=== PATIENT | male | born 1970 | race Caucasian/White ===

== ENCOUNTER 2017-12-30 00:27 | Observation (INO) | payer MEDICAID ==
[~2017-12-30] VITALS: Ht 182.9 cm; Wt 118.0 kg
[~2017-12-30 00:27] MED LIST: ATOR40TA16 PO; GABA800T PO; LEVEMIR SQ; METF1000 PO
[2017-12-30] MEDS ORDERED: ACETAMINOPHEN 325 MG TAB PO PRN (02:00)
[2017-12-30] MEDS ORDERED: SENNOSIDES 8.6 MG TAB PO PRN (02:00)
[2017-12-30] MEDS ORDERED: LACTULOSE SYRUP 20 GM/30 ML CUP PO PRN (02:00)
[2017-12-30] MEDS ORDERED: BISACODYL 10 MG SUPP RECTAL PRN (02:00)
[2017-12-30] MEDS ORDERED: SODIUM CHLORIDE 0.9% FLUSH 10 ML FLUSH IV FLUSH PRN ×2 (02:00→16:30)
[2017-12-30] MEDS ORDERED: MAGNESIUM HYDROXIDE SUSP 30 ML CUP PO PRN (02:00)
[2017-12-30] MEDS ORDERED: NALOXONE HCL 0.4 MG/ML AMP IV PUSH PRN (02:00)
[2017-12-30 06:54] VITALS: BP 127/73; PULSE 65; RESP 20; O2SAT 98
[2017-12-30 07:29] VITALS: BP 119/70; PULSE 62; RESP 20; O2SAT 98
[2017-12-30] MEDS ORDERED: SODIUM CHLORIDE 0.9% FLUSH 10 ML FLUSH IV FLUSH SCH (09:00)
--- NOTE | 2017-12-30 13:39 | PD.PN.STU ---
Subjective Remarks History of Present Illness: HPI Patient presented to the [facility] ED last night (12/29) for chest pain. The pain began 1 week ago and was originally mild, intermittent and episodic. Over the past 2 days, it has become more severe and more frequent, and last night became constant for 2 hours which prompted the trip to the ED. He described the pain as pressure or sensation of heaviness. It is substernal and does not radiate. Rated 10/10 at time of ED presentation. He has never had any similar symptoms before, and does not believe it is related to exertion as he does not exercise. He reported associated shortness of breath but denied diaphoresis, nausea, vomiting. He reports increased fatigue over the past week. Has history of VINI and uses CPAP nightly. Has never had GERD. Pt says the [place] ED performed an initial EKG which was normal, then a repeat EKG was abnormal. He was transferred to [facility] this morning because stress test was unavailable in [place]. He was given aspirin, morphine and Nitropaste in [place], and denies chest pain since last night. Cardiac risk factors include a history of cigarette smoking. He has a 20 pack- year history but says he mostly quit 4 years ago. Now he occasionally smokes, as he will go weeks without smoking but then have an urge and smoke one pack of cigarettes over the weekend. He has not seen a physician in 10-15 years aside from meniscal/ACL tear that required repair in 2017. He was told he had high cholesterol ~10 years ago and given Crestor, but it made him feel terrible so he has not taken it. Denies HTN. He does not follow a specific diet and ate [employer] chicken before coming to the ED. 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 His father from [place] with "100% occlusion" at 56 years old. Denies EtOH. Denies cocaine or substance use. Today he denies chest pain/pressure and is feeling better. Reports fatigue. Denies dyspnea, palpitations, diaphoresis, headaches, fever, abdominal pain, nausea, vomiting, change in bowel habits, musculoskeletal pain. PFSH: PMHx: Sleep apnea, uses CPAP nightly HLD Meds: Ibuprofen prn Surgical Hx: R knee repair of meniscus and ACL 2017 Social Hx: Alcohol Use: Rarely Tobacco Use: 20 pack-year history, current occasional cigarette smoker Substance Use: No FHx: Father - [place] at 56yo, Objective Vitals Vital Signs Date Time Temp Pulse Resp B/P (MAP) Pulse Ox O2 Delivery O2 Flow Rate FiO2 12/30/17 11:29 (86) 12/30/17 07:29 62 20 119/70 (86) 98 Room Air 12/30/17 06:57 63 20 98 Room Air 12/30/17 06:54 65 20 127/73 (91) 98 Objective Remarks Laboratory Tests Test 12/30/17 05:00 12/30/17 09:47 Troponin I LESS THAN 0.02 NG/ML LESS THAN 0.02 NG/ML EXAM: GENERAL: Well-nourished, well-developed, obese male, alert and in NAD. SKIN: Warm/dry. HEAD: Normocephalic. Atraumatic. EYES: Pupils equal and round. No scleral icterus. No injection or drainage. CARDIOVASCULAR: RRR with normal S1/S2 and no murmurs, rubs, or gallops. No JVD. No carotid bruits. Trace peripheral edema of the ankles with strong DP and PT pulses bilaterally. RESPIRATORY: No accessory muscle use. Clear to auscultation with equal breath sounds equal bilaterally. No chest wall tenderness to palpation. GASTROINTESTINAL: Abdomen is obese, soft, nontender, nondistended. Bowel sounds present in all quadrants. NEUROLOGICAL: Awake and alert. No obvious cranial nerve deficits. Motor grossly within normal limits. Normal speech. PSYCHIATRIC: Appropriate mood and affect; insight and judgment normal. A/P Assessment and Plan 47-year-old male presented to [place] ED with chest pain x1 week, acutely worsened last night. Patient was given morphine, ASA, nitropaste and pain has since resolved. He has multiple risk factors for a cardiac source of chest pain , including history of tobacco use, HLD, father with [place] at 56, obesity, and sedentary lifestyle. Patient does not have a PCP and has not seen a physician in many years. Initial EKG was negative and showed NSR with no ischemic change, but second EKG showed T-wave inversion in V4, V5 and V6. This change prompted admission to [facility]. Heparin was started. Troponin x3 negative at <0.02 CXR 12/29 was negative for acute cardiopulmonary disease. He has been admitted to hospitalist service and cardiology consulted. Problem List: 1. Chest Pain, possible cardiac origin Patient is currently stable, comfortable, and pain is controlled Serial troponin negative x3 Telemetry monitoring Vitals q4hr IV NS for hydration Will continue EKG q6 hours to look for any further signs of ischemia CMP, CBC, coagulation panel performed in [place] ED (12/29) all wnl with the exception of Ca++ 8.4L, random BG 107H, eGFR 60L, PT 9.3 Will order lipid panel Consult cardiology for further evaluation, possible stress test vs. cath Pt was eating lunch when I saw him in the ED today, will order heart healthy diet 2. Tobacco use Counseled on smoking cessation 3. Obstructive Sleep Apnea Uses CPAP at home nightly, will continue in hospital Case discussed at length with Monster Nj MS IV . Note above reviewed and agree with above note. Monster Nj M3 December 30, 2017 13:39 Pilar Gupta MD Jan 07, 2018 18:17
[2017-12-30 15:00] VITALS: PULSE 72
[2017-12-30] MEDS ORDERED: MIDAZOLAM HCL 2 MG/2 ML VIAL ONE ×2 (15:17→15:55)
[2017-12-30] MEDS ORDERED: HEPARIN-NS/PF INJ 1,000 ML ONE (15:17)
[2017-12-30] MEDS ORDERED: HEPARIN SODIUM - IV 10,000 UNITS/10 ML VIAL ONE (15:44)
--- NOTE | 2017-12-30 15:49 | HHI.HP ---
HPI Service [facility] Hospitalists Primary Care Physician No Primary Care Physician Admission Diagnosis Diagnoses: Chief Complaint: chest pain Travel History International Travel<30 Days: No Contact w/Intl Traveler <30 Da: No Traveled to Known Affected Are: No History of Present Illness Patient presented to the [facility] ED last night (12/29) for chest pain. The pain began 1 week ago and was originally mild, intermittent and episodic. Over the past 2 days, it has become more severe and more frequent, and last night became constant for 2 hours which prompted the trip to the ED. He described the pain as pressure or sensation of heaviness. It is substernal and does not radiate. Rated 10/10 at time of ED presentation. He has never had any similar symptoms before, and does not believe it is related to exertion as he does not exercise. He reported associated shortness of breath but denied diaphoresis, nausea, vomiting. He reports increased fatigue over the past week. Has history of VINI and uses CPAP nightly. Has never had GERD. Pt says the [place] ED performed an initial EKG which was normal, then a repeat EKG was abnormal. He was transferred to [facility] this morning because stress test was unavailable in [place]. Cardiology is also consulted for evaluation as changes in EGG. Trops and EKG trend. He was given aspirin, morphine and Nitropaste in [place], and denies chest pain since last night. Cardiac risk factors include a history of cigarette smoking. He has a 20 pack- year history but says he mostly quit 4 years ago. Now he occasionally smokes, as he will go weeks without smoking but then have an urge and smoke one pack of cigarettes over the weekend. He has not seen a physician in 10-15 years aside from meniscal/ACL tear that required repair in 2017. He was told he had high cholesterol ~10 years ago and given Crestor, but it made him feel terrible so he has not taken it. Denies HTN. He does not follow a specific diet and ate [employer] chicken before coming to the ED. 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 His father from [place] with "100% occlusion" at 56 years old. Denies EtOH. Denies cocaine or substance use. Today he denies chest pain/pressure and is feeling better. Reports fatigue. Denies dyspnea, palpitations, diaphoresis, headaches, fever, abdominal pain, nausea, vomiting, change in bowel habits, musculoskeletal pain. Review of Systems ROS Limitations: Clinical Condition Except as stated in HPI: all other systems reviewed are Neg Past Family Social History Past Medical History Sleep apnea, uses CPAP nightly HLD Past Surgical History R knee repair of meniscus and ACL 2017 Allergies: Coded Allergies: No Known Allergies (Unverified , 12/29/17) Family History Father - [place] at 56yo, Social History Alcohol Use: Occasionally Tobacco Use: 20 pack-year history, current occasional cigarette smoker Substance Use: No Physical Exam Vital Signs Vital Signs Date Time Temp Pulse Resp B/P (MAP) Pulse Ox O2 Delivery O2 Flow Rate FiO2 12/30/17 15:00 72 12/30/17 11:29 (86) 12/30/17 07:29 62 20 119/70 (86) 98 Room Air 12/30/17 06:57 63 20 98 Room Air 12/30/17 06:54 65 20 127/73 (91) 98 Physical Exam GENERAL: This is a well-nourished, well-developed patient, in no apparent distress. SKIN: No rashes, ecchymoses or lesions. Cool and dry. HEAD: Atraumatic. Normocephalic. No temporal or scalp tenderness. EYES: Pupils equal round and reactive. Extraocular motions intact. No scleral icterus. No injection or drainage. ENT: Nose without bleeding, purulent drainage or septal hematoma. Throat without erythema, tonsillar hypertrophy or exudate. Uvula midline. Airway patent. NECK: Trachea midline. No JVD or lymphadenopathy. Supple, nontender, no meningeal signs. CARDIOVASCULAR: Regular rate and rhythm without murmurs, gallops, or rubs. RESPIRATORY: Clear to auscultation. Breath sounds equal bilaterally. No wheezes , rales, or rhonchi. GASTROINTESTINAL: Abdomen soft, non-tender, nondistended. No hepato-splenomegaly , or palpable masses. No guarding. MUSCULOSKELETAL: Extremities without clubbing, cyanosis, or edema. No joint tenderness, effusion, or edema noted. No calf tenderness. Negative Homans sign bilaterally. NEUROLOGICAL: Awake and alert. Cranial nerves II through XII intact. Motor and sensory grossly within normal limits. Five out of 5 muscle strength in all muscle groups. Normal speech. Laboratory Laboratory Tests Test 12/30/17 05:00 12/30/17 09:47 Troponin I LESS THAN 0.02 LESS THAN 0.02 Caprini VTE Risk Assessment Caprini VTE Risk Assessment: Mod/High Risk (score >= 2) Caprini Risk Assessment Model Point Value = 1 Point Value = 2 Point Value = 3 Point Value = 5 Age 41-60 Minor surgery BMI > 25 kg/m2 Swollen legs Varicose veins or History of unexplained or recurrent spontaneous Oral contraceptives or hormone replacement Sepsis (< 1 month) Serious lung disease, including pneumonia (< 1 month) Abnormal pulmonary function Acute myocardial infarction Congestive heart failure (< 1 month) History of inflammatory bowel disease Medical patient at bed rest Age 61-74 Arthroscopic surgery Major open surgery (> 45 min) Laparoscopic surgery (> 45 min) Malignancy Confined to bed (> 72 hours) Immobilizing plaster cast Central venous access Age >= 75 History of VTE Family history of VTE Factor V Leiden Prothrombin [id number] Lupus anticoagulant Anticardiolipin antibodies Elevated serum homocysteine Heparin-induced thrombocytopenia Other congenital or acquired thrombophilia Stroke (< 1 month) Elective arthroplasty Hip, pelvis, or leg fracture Acute spinal cord injury (< 1 month) Prophylaxis Regimen Total Risk Factor Score Risk Level Prophylaxis Regimen 0-1 Low Early ambulation 2 Moderate Order ONE of the following: *Sequential Compression Device (SCD) *Heparin 5000 units SQ BID 3-4 Higher Order ONE of the following medications: *Heparin 5000 units SQ TID *Enoxaparin/Lovenox 40 mg SQ daily (WT < 150 kg, CrCl > 30 mL/min) *Enoxaparin/Lovenox 30 mg SQ daily (WT < 150 kg, CrCl > 10-29 mL/min) *Enoxaparin/Lovenox 30 mg SQ BID (WT < 150 kg, CrCl > 30 mL/min) AND/OR *Sequential Compression Device (SCD) 5 or more Highest Order ONE of the following medications: *Heparin 5000 units SQ TID (Preferred with Epidurals) *Enoxaparin/Lovenox 40 mg SQ daily (WT < 150 kg, CrCl > 30 mL/min) *Enoxaparin/Lovenox 30 mg SQ daily (WT < 150 kg, CrCl > 10-29 mL/min) *Enoxaparin/Lovenox 30 mg SQ BID (WT < 150 kg, CrCl > 30 mL/min) AND *Sequential Compression Device (SCD) Assessment and Plan Assessment and Plan 47-year-old male presented to [place] ED with chest pain x1 week, acutely worsened last night. Patient was given morphine, ASA, nitropaste and pain has since resolved. He has multiple risk factors for a cardiac source of chest pain , including history of tobacco use, HLD, father with [place] at 56, obesity, and sedentary lifestyle. Patient does not have a PCP and has not seen a physician in many years. Initial EKG was negative and showed NSR with no ischemic change, but second EKG showed T-wave inversion in V4, V5 and V6. This change prompted admission to [facility]. Heparin was started. Troponin x3 negative at <0.02 CXR 12/29 was negative for acute cardiopulmonary disease. Chest Pain/ Angina Patient is currently stable, comfortable, and pain free since admission Serial troponin negative x3 Telemetry monitoring Vitals q4hr IV NS for hydration EKG q6 hours to look for any further signs of ischemia CMP, CBC, coagulation panel performed in [place] ED (12/29) all wnl with the exception of Ca++ 8.4L, random BG 107H, eGFR 60L, PT 9.3 Check lipid panel Consult cardiology as noted with EKG changes Plan for cardiac cath per cardio Seen by Dr Lowe cardio Tobacco use - Counseled on smoking cessation Obstructive Sleep Apnea - Uses CPAP at home nightly, will continue in hospital DVT pp scd/teds Discussed Condition With pt. nurse Pilar Gupta MD December 30, 2017 15:49
[2017-12-30] MEDS ORDERED: ADENOSINE STRESS TEST INJ 90 MG/30 ML VIAL ONE (15:53)
--- NOTE | 2017-12-30 16:02 | MB ---
cc: Marino Knight MD DATE: 12/30/2017 HISTORY OF PRESENT ILLNESS: Mr. Carlos Bishop is a very pleasant 47-year-old gentleman who had severe chest pain last night, described as pressure-like. He had recurrent chest pain this morning that was mild to moderate. He was brought into the emergency room. Currently he is chest pain free. He denies fever, chills, cough, GI or bleeding, PND, orthopnea, syncope or dizziness. He told the ER staff, he did have some dyspnea. PAST MEDICAL HISTORY: As per History Of Present Illness. Includes obstructive sleep apnea, uses CPAP. PAST SURGICAL HISTORY: Includes a meniscal ACL tear repaired in 2017. SOCIAL HISTORY: He smokes cigarettes. He denies alcohol use. MEDICATIONS PRIOR TO ADMISSION: Ibuprofen p.r.n. MEDICATIONS IN THE HOSPITAL: None. PHYSICAL EXAMINATION: VITAL SIGNS: Blood pressure 119/70, pulse 62, respiratory 20, sating 98% on room air. GENERAL: He is alert and oriented x 3, in no acute distress. NECK: Supple. No JVD. No bruit. HEART: S1, S2. No murmurs, rubs or gallops. LUNGS: Clear to auscultation bilaterally. ABDOMEN: Soft, nontender, nondistended with positive bowel sounds. EXTREMITIES: No lower extremity edema. IMAGING STUDIES: Chest x-ray shows no acute cardiopulmonary disease. EKG is not available. It was done in [place]. LABORATORY DATA: Troponin less than 0.02 x2. White count is 8.2, hemoglobin 13.9, hematocrit 40.3, platelet count 275. Sodium 143, potassium 3.5, chloride 106, bicarbonate 30.0, BUN 15, creatinine 1.30, glucose 107. DIAGNOSES: 1. Unstable angina. 2. [place] [employer] class IV angina. 3. Sleep apnea. 4. Tobacco abuse. DISCUSSION: I do think left heart catheterization is medically necessary due to unstable angina, [place] [employer] class IV angina. I have explained to the patient that the risk of catheterization and PCI is a 5-10% chance of , stroke, heart attack, bleeding, infection, need for bypass, surgery for dialysis, blood transfusion, bleeding, infection, anaphylaxis and arrhythmia. The patient understands and consents to proceed with the procedure. I strongly recommend smoking cessation. Further recommendations based on the details of his cardiac catheterization. MD SAMMY Pardo/AVELINA , 03:22 PM , 04:00 PM
--- NOTE | 2017-12-30 16:27 | CATHPROC ---
[facility] HIS Report Study Information Study Number Admission Scheduled Start Study Start [id number] Dec 30 2017 6:48AM 12/30/2017 Dec 30 2017 2:59PM [place] [facility] Cardiac Catheterization Admit Source Facility Department Transfer in from another acute care facility [facility] - Client Experience Administrator Physician and Clinical Staff Initial Marino Lou Escrow Clerkmoustapha Zuniga RN, Christ ValdesRN Recorder Betsy Butler,RT(R) Ney Alexandre,RT(R) Procedures Performed Procedure Location (Site) Vessel Name Coronary Angiograms LCA Left Coronary Coronary Angiograms RCA Right Coronary L Heart Cath LV Gram-hand inj. LV LV Ventricle Wire insertion Fem Art (right) Femoral Art Equipment Time Bung Dropper Description Size Mfg Part Number Used/Scraped TRANSDUCER, TRUWANNALEE [id number] 15:03 ARENAS MYERS * Used W/STOCKCOCK *[id number] *[id number] [id number] *[id number] *[id number] *[id number] *[id number] 15:03 MEDLINE INDUSTRIES PACK, CCL CUSTOM * Used *[id number] 15:03 MEDLINE PACER PEN, SKIN DUAL W/ RULER * Used *[id number] 15:47 Ener1 MEDICAL SHEATH, FR6.5 PRELUDE 11CM FR 6.5 038ACT Used *[id number] 15:03 Ener1 MEDICAL WIRE, 3MMJ .035 180CM 180CM Used *[id number] 15:03 NAMIC MANIFOLD, 4 PORT * Used *[id number] 15:03 NYCOMED OMNIPAQUE, 350 MG, 150ML 150ML [id number] Used [id number] 15:03 [employer]ICAS MEDICAL BLANKET,WARM AIR CCL * Used *[id number] 15:03 TERUMO MEDICAL SHEATH, FR4 TERUMO (10CM) FR 4 Used *[id number] 15:50 [employer]OL[place]O PRIME WIRE, VERRATA 185CM 185CM Used *[id number] Equipment Model, Serial, Lot Number and Expiration Data Description Model Number Serial Number Lot Number Expiration Date PRIME WIRE, VERRATA 185CM 1938 [id number] 11-06-2020 History: Current Medications Medication Dosage/Unit Route Frequency Last Date/Time Taken HEPARIN History: Allergies Allergy Reaction No Known Allergies History: Risk Factors Family History of Hypertension Dyslipidemia Previous MA Previous Heart Failure Premature CAD Yes No No No No Prior Valve Prior PCI Prior CABG Surgery No No No Cerebrovascular Peripheral Artery Chronic Lung On Dialysis Diabetes Disease Disease Disease No No No No No History: Symptoms/Diagnosis Selection Items Chest pain History: Stress Tests Stress or Imaging Studies Performed No History: Other Disease Selection Items HTN History: Other Current Smoker Method Yes Cigarettes Labs Hgb (g/dl) Hct (%) RBC (MIL/MM3) WBC (l/cumm) Platelets (thousands) 11.60-17.00 35.00-51.00 4.00-5.90 4.00-11.00 150.00-450.00 13.9 40.3 4.9 8.2 275 Glucose (mg/dl) BUN (mg/dl) Creatinine (mg/dl) BUN:Creatinine (1:x) 74.00-106.00 7.00-18.00 0.50-1.30 10.00-20.00 107 15 1.3 11.5 Na (meq/l) K (meq/l) Cl (meq/l) CO2 (mmol/L) Ca (mg/dl) 136.00-145.00 3.50-5.10 98.00-107.00 21.00-32.00 8.50-10.10 143 3.5 106 30 8.4 Troponin I (ng/ml) CPK-MB (ng/ML) 0.02-0.05 0.50-3.60 0.02 Not Drawn Medication Medication Total Dose (Bolus/Oral) Medication Total Dosage/Unit 1% XYLOCAINE 20 mL FENTANYL 25 mcg HEPARIN 5000 units VERSED 3 mg Medications (Bolus/Oral) Medication Time Given Dosage/Unit Administered By Reason VERSED 12/30/2017 3:23:58 PM 2 mg Nick Zuniga RN 2 mg VERSED given in lab by Nick Zuniga RN in Right Antecubital via Peripheral IV. FENTANYL 12/30/2017 3:24:29 PM 25 mcg Nick Zuniga RN 25 mcg FENTANYL given in lab by Nick Zuniga RN via Peripheral IV. 1% XYLOCAINE 12/30/2017 3:35:17 PM 20 mL Marino Knight 20 mL 1% XYLOCAINE given in lab by Marino Knight in Right Groin via Subcutaneous. HEPARIN 12/30/2017 3:46:46 PM 2500 units Nick Zuniga RN 2500 units HEPARIN given in lab by Nick Zuniga RN via Peripheral IV. VERSED 12/30/2017 3:56:31 PM 1 mg Christ Strickland 1 mg VERSED given in lab by Christ Strcikland RN via Peripheral IV. HEPARIN 12/30/2017 3:59:55 PM 2500 units Christ Strickland 2500 units HEPARIN given in lab by Christ Strickland RN via Peripheral IV. Medication (Drip) Medication Time Given Dosage/Unit Concentration/Unit Diluent (ml) Solution ADENOSINE DRIP 12/30/2017 4:00:24 PM 140 mcg/kg/min 90 mg 90 NaCl .9 140 mcg/kg/min ADENOSINE DRIP given in lab by Nick Zuniga RN via Peripheral IV. Pump/Drip Flow = 992 .88 ml/hr using NaCl .9 with a concentration of 90 mg in 90 ml. IV Solutions 12/30/2017 3:10:04 PM 50 mL (IV) NaCl .9 Patient arrived on IV Solutions via Peripheral IV. Pump/Drip Flow using NaCl .9. Initial Case Assessment Cardiovascular HR Rhythm NIBP Chest Pain 68 reg 167/109 2 Edema Present Skin color Skin None Normal Warm Dry Circulatory - Right Pulses Dorsalis Pedis Femoral 2 3 Scale (0,1,2,3,4,d) Circulatory - Left Pulses Dorsalis Pedis Femoral 3 3 Scale (0,1,2,3,4,d) Circulatory - Lower Extremities Color Lower Right Color Lower Left Normal Normal Neurological State Oriented to time-place- Alert Moves all extremities person Respiration - General Respiration Rate SpO2 (%) (B/min) 18 98 Final Case Assessment Cardiovascular HR Rhythm NIBP Chest Pain 75 reg 136/79 0 Edema Present Skin color Skin None Normal Warm Circulatory - Right Pulses Dorsalis Pedis Femoral 2 3 Scale (0,1,2,3,4,d) Circulatory - Left Pulses Dorsalis Pedis Femoral 3 3 Scale (0,1,2,3,4,d) Circulatory - Lower Extremities Color Lower Right Color Lower Left Normal Normal Neurological State Oriented to time-place- Alert Moves all extremities person Respiration - General Respiration Rate SpO2 (%) (B/min) 21 96 Chronological Log Time Study Chronological Log 15:09:55 Patient arrived via Bed. 15:09:56 Patient Name, D.O.B, / Armband Verified By R.N. 15:09:56 Consent signed by the physician and the patient and verified by the Client Experience Administrator staff. 15:09:57 Pre-op and post- op instructions given; patient acknowledges understanding of instructions. 15:09:58 Verbal Stimulation=2 Physical Stimulation=2 Airway=2 Respiration=2 TOTAL=8. (0=absent, 1=li mited, 2=present) 15:10:00 Patient has been NPO for Less than 6Hrs. 15:10:00 Skin Breakdown- NONE PER PATIENT 15:10:02 A # 20 IV was noted in the Antecubital (right). Grade = 0 15:10:04 Patient arrived on IV Solutions via Peripheral IV. Pump/Drip Flow using NaCl .9. 15:18:10 History and physical on the chart or being dictated. Assessment: Initial Case, HR=68 BPM, Rhythm=reg, MAXM=785/109 mmhg, Chest Pain=2, Edema=None, Color=Normal, Skin = Warm, Dry Right Pulses: Tyrone Ped=2, Femoral=3 Left Pulses: [place]one Ped=3, Femoral=3 15:18:11 Lower Right Extremities: Color=Normal Lower Left Extremities: Color=Normal Neurological: State=Alert, Ox3, COLLIER Respiration: Resp=18 B/min, SpO2=98 % Vitals capture started with the following parameters, Patient=Adult, Interval=5 min, Initial Pr mjaqam=396 mmHg, 15:19:07 Deflation Rate=5 mmHg, Cuff placed on left Arm 15:20:11 HR=71 bpm, IMEF=681/109 mmhg, SpO2=98.0 %, Resp=15 B/min, Pain=2, Annmarie=8, Shaffer=2 15:22:18 Reference ECG taken 15:23:41 MD arrived. Time Out. Correct patient, correct procedure, correct physician, labs, allergies, and equipment verified with manager lab 15:23:46 team present. Fire risk assesment completed (see hard stop sheet for coding). Time Out Conc urred by MD and individual staff in procedure. 15:23:58 2 mg VERSED given in lab by Nick Zuniga RN in Right Antecubital via Peripheral IV. 15:24:29 25 mcg FENTANYL given in lab by Nick Zuniga RN via Peripheral IV. 15:24:51 HR=73 bpm, CQUC=095/100 mmhg, SpO2=98.0 %, Resp=14 B/min, Pain=2, Annmarie=8, Shaffer=2 15:25:11 Bilateral groins prepped with 2% chlorhexidine, and draped after a 3 minute waiting time. 15:28:18 Pressure channel 1 zeroed. 15:29:52 HR=71 bpm, VJZD=770/96 mmhg, SpO2=98.0 %, Resp=11 B/min, Pain=2, Annmarie=8, Shaffer=2 15:34:51 HR=67 bpm, WLMR=742/102 mmhg, SpO2=98.0 %, Resp=13 B/min, Pain=2, Annmarie=10, Shaffer=2 15:35:04 Case Start 15:35:06 Verbal Stimulation=2 Physical Stimulation=2 Airway=2 Respiration=1 TOTAL=8. (0=absent, 1=li mited, 2=present) 15:35:17 20 mL 1% XYLOCAINE given in lab by Marino Knight in Right Groin via Subcutaneous. 15:36:13 Access site was Right Femoral Artery. 15:37:30 A SHEATH, FR4 TERUMO (10CM) FR 4 was advanced into the Fem Art (right) using the Percutaneo us technique. A JR 4.0 INFINITI CATHETER FR 4 was advanced over a wire. OMNIPAQUE, 350 MG, 150ML 150ML was us ed for 15:38:03 injections. Recorded Pressure: LV, HR=67, Condition=Condition 1 15:38:54 (Left Ventricle) LV 142/8/19 15:39:03 The LV was manually injected with 10 cc's and visualized. OMNIPAQUE, 350 MG, 150ML 150ML us ed. Recorded Pressure: LV, Ao, HR=67, Condition=Condition 1 15:39:06 (Left Ventricle) LV 150/5/20, (Aorta) Ao 139/93/114 15:39:45 The RCA was injected and visualized at various angles. OMNIPAQUE, 350 MG, 150ML 150ML used . 15:39:50 HR=64 bpm, APOV=297/97 mmhg, SpO2=98.0 %, Resp=11 B/min, Pain=2, Annmarie=10, Shaffer=2 15:40:43 Catheter was removed A JL 4.0 INFINITI CATHETER FR 4 was advanced over a wire. OMNIPAQUE, 350 MG, 150ML 150ML was us ed for 15:40:45 injections. 15:42:02 The LCA was injected and visualized at various angles. OMNIPAQUE, 350 MG, 150ML 150ML used . 15:43:39 Catheter was removed A JL 5.0 INFINITI CATHETER FR 4 was advanced over a wire. OMNIPAQUE, 350 MG, 150ML 150ML was us ed for 15:43:56 injections. 15:44:49 HR=73 bpm, REWX=023/101 mmhg, SpO2=97.0 %, Resp=16 B/min, Pain=2, Annmarie=10, Shaffer=2 15:45:26 The LCA was injected and visualized at various angles. OMNIPAQUE, 350 MG, 150ML 150ML used . 15:46:46 2500 units HEPARIN given in lab by Nick Zuniga RN via Peripheral IV. 15:46:50 Catheter was removed A SHEATH, FR6.5 PRELUDE 11CM FR 6.5 was exchanged in the Fem Art (right). This was necessary in order to 15:46:52 accomodate a larger catheter. A XB 4.0 GUIDE CATHETER FR 6 was advanced over a wire. OMNIPAQUE, 350 MG, 150ML 150ML was used for 15:49:05 injections. 15:49:50 HR=64 bpm, HDRO=676/101 mmhg, SpO2=97.0 %, Resp=26 B/min, Pain=2, Annmarie=10, Shaffer=2 15:54:43 Catheter was removed 15:54:56 HR=67 bpm, BOFR=434/75 mmhg, SpO2=97.0 %, Resp=15 B/min, Pain=2, Annmarie=10, Shaffer=2 A XB 3.5 GUIDE CATHETER FR 6 was advanced over a wire. OMNIPAQUE, 350 MG, 150ML 150ML was used for 15:55:39 injections. 15:56:31 1 mg VERSED given in lab by Christ Strickland RN via Peripheral IV. Recorded Pressure: Ao, HR=68, Condition=Condition 1 15:58:13 (Aorta) Ao 142/89/113 15:58:30 A PRIME WIRE, VERRATA 185CM 185CM was inserted via Fem Art (right). 15:58:50 ACT (Normal Range 90-180) = 185 15:59:44 Flow Wire was was placed in the LAD Prox. The FFR measures 0.82 percent. The IFR measures 0 .94 Percent. 15:59:53 HR=66 bpm, SPQL=128/100 mmhg, SpO2=95.0 %, Resp=20 B/min, Pain=2, Annmarie=10, Shaffer=2 15:59:55 2500 units HEPARIN given in lab by Christ Strickland RN via Peripheral IV. 140 mcg/kg/min ADENOSINE DRIP given in lab by Nick Zuniga RN via Peripheral IV. Pump/Drip Flow = 992.88 ml/hr 16:00:24 using NaCl .9 with a concentration of 90 mg in 90 ml. 16:04:52 HR=81 bpm, DVAI=073/79 mmhg, SpO2=99.0 %, Resp=19 B/min, Pain=2, Annmarie=10, Shaffer=2 16:07:54 Wire removed 16:07:56 Catheter was removed 16:08:10 Case End Assessment: Final Case, HR=75 BPM, Rhythm=reg, IBEC=100/79 mmhg, Chest Pain=0, Edema=None, [place] r=Normal, Skin = Warm Right Pulses: Tyrone Ped=2, Femoral=3 Left Pulses: Tyrone Ped=3, Femoral=3 16:08:12 Lower Right Extremities: Color=Normal Lower Left Extremities: Color=Normal Neurological: State=Alert, Ox3, COLLIER Respiration: Resp=21 B/min, SpO2=96 % 16:09:49 HR=68 bpm, YHFG=423/86 mmhg, SpO2=96.0 %, Resp=20 B/min, Pain=2, Annmarie=10, Shaffer=2 16:10:01 Catheter(s) removed without difficulty 16:10:08 In the Fem Art (right) the SHEATH, FR6.5 PRELUDE 11CM FR 6.[address] by Ney Soriano, RT(R). 16:10:15 Sterile dressing applied to site 16:10:16 No case complications noted. 16:12:46 Cine recording checked. 16:12:47 Bedside Report will be given. 16:12:52 A Left Heart Cath was performed. 16:13:03 Clinical correlaton risk stratification. 16:14:45 ACT (Normal Range 90-180) = 258 End Study - Maximum Contrast Load Max Contrast Load (mL) 454.5 End Study - Radiation Exposure Fluoro Time (minutes) 5.3 End Study - Patient Disposition Complications Transferred To No Regular Bed
[2017-12-30] MEDS ORDERED: MISC INFORMATION XX ONE (16:30)
--- NOTE | 2017-12-30 17:12 | MR ---
cc: Marino Knight MD, Arthur W MD DATE: 12/30/2017 PROCEDURES: Left heart catheterization, left ventriculography, coronary arteriography, IFR and FFR of the mid LAD. INDICATIONS FOR PROCEDURE: Unstable angina, [place] Cardiovascular Society Class IV angina, coronary artery disease, tobacco use, 70% mid LAD lesion. PROCEDURAL STATEMENT: The patient was brought to the cardiac catheterization laboratory, prepped and draped in usual sterile fashion. 10 mL of 1% lidocaine was used to locally anesthetized the right common femoral artery. a 4-Tristanian sheath placed in right common femoral artery. 4-Tristanian JR4 and JL5 catheters were used to perform left and right coronary angiography, left ventriculography. FINDINGS: The LV pressure is 150/15/16, EF 60%. Right coronary artery is large and dominant. There is a long, smooth, 50% proximal mid stenosis. Reference vessel diameter in the proximal right is probably 4.5 mm. Right PDA and right FILIPE have no obvious focal stenosis. Left main coronary artery is a large vessel. Reference vessel diameter of probably at least 5.5 to 6 millimeters and no significant disease angiographically. Left circumflex vessel has mild disease in the proximal segment up to 5-10% angiographically. The first obtuse marginal vessel is a large vessel. Reference vessel diameter of probably 4 mm with mild diffuse disease up to 10% angiographically. The remainder of the AV groove left circumflex vessel has no significant disease angiographically. The LAD has a long 70% stenosis in the mid segment of the bifurcation with a large diagonal vessel. The diagonal vessel reference vessel diameter is 3.5 mm with subtle ostial disease up to 20% angiographically. The LAD is transapical. Beyond the mid segment stenosis, there is an additional sequential 30-40% stenosis at a bifurcation with a small diagonal vessel. This diagonal vessel has a reference vessel diameter of 2 mm and no significant obstructive disease. The 6-Tristanian sheath was exchanged for the 4-Tristanian sheath. Additional 2500 units of heparin was given as the baseline ACT was 148. Second ACT was 187 and given a second heparin bolus of 2500. Final ACT 258. A 6-Tristanian XB 3.5 guide and a 0.014 volcano pressure wire was placed into the proximal LAD. The introducer was removed. The guide catheter was thoroughly flushed with 20 mL of normal saline. Pressure waveforms were normalized. I then advanced the pressure wire beyond the mid LAD lesion. IFR was 0.94. We did a 3-minute infusion of adenosine. FFR was 0.83. PCI was deferred. CONCLUSION: 1. Unstable angina, [place] Cardiovascular Society Class IV angina. Probable culprit lesion 70% mid LAD lesion as detailed above. The patient may possibly have some spasm in addition to the 70% stenosis induced by tobacco use. 2. Otherwise, moderate disease in the right coronary artery as detailed above. 3. Normal left ventricular systolic function, ejection fraction 60%. 4. Recommend medical management of coronary artery disease, cardiac risk factor modification. 5. Strongly recommend smoking cessation. Patient has been extensively counseled by myself. MD SAMMY Pardo/ , 04:19 PM , 05:11 PM
[2017-12-30] MEDS: SODIUM CHLORIDE 0.9% FLUSH 10 ML FLUSH IV FLUSH SCH (21:00)
[2017-12-30] MEDS ORDERED: cloNIDine HCL 0.1 MG TAB PO ONE (22:00)
[2017-12-30 22:45] VITALS: BP 175/96; PULSE 71; PULSE 72; RESP 16; O2SAT 98
[2017-12-31] VITALS (11 sets, daily range): BP systolic 150–151; BP diastolic 90–95; PULSE 66–84; RESP 16; TEMP 98.7–98.8; O2SAT 96–98
[2017-12-31 06:54] LABS: AUTOMATED NEUTROPHIL # 5.3 TH/MM3 (1.8-7.7); BASOPHIL % 0.4 % (0.0-2.0); EOSINOPHIL # 0.2 TH/MM3 (0-0.4); EOSINOPHIL % 2.3 % (0.0-4.0); HEMATOCRIT 42.7 % (39.0-51.0); HEMOGLOBIN 14.5 GM/DL (13.0-17.0); LYMPH % 24.6 % (9.0-44.0); LYMPHOCYTE # 1.9 TH/MM3 (1.0-4.8); MEAN CELL VOLUME 83.3 FL (80.0-100.0); MEAN CORPUSCULAR HEMOGLOBIN 28.3 PG (27.0-34.0); MEAN CORPUSCULAR HGB CONC 33.9 % (32.0-36.0); MEAN PLATELET VOLUME 8.4 FL (7.0-11.0); MONO % 6.1 % (0.0-8.0); MONOCYTE # 0.5 TH/MM3 (0-0.9); NEUT % 66.6 % (16.0-70.0); PLATELET COUNT 268 TH/MM3 (150-450); RED BLOOD COUNT 5.13 MIL/MM3 (4.50-5.90); RED CELL DISTRIBUTION WIDTH 14.1 % (11.6-17.2); WHITE BLOOD COUNT 7.9 TH/MM3 (4.0-11.0)
[2017-12-31 07:27] LABS: ALBUMIN 3.8 GM/DL (3.4-5.0); BICARBONATE 26.7 MEQ/L (21.0-32.0); CALCIUM 8.6 MG/DL (8.5-10.1); DIRECT BILIRUBIN ADULT 0.1 MG/DL (0.0-0.2)
[2017-12-31 07:29] LABS: CHOLESTEROL/ HDL RATIO 6.18 RATIO; HDL CHOLESTEROL 32.5 MG/DL (40.0-60.0); INDIRECT BILIRUBIN 0.5 MG/DL (0.0-0.8); TOTAL BILIRUBIN ADULT 0.6 MG/DL (0.2-1.0); TOTAL PROTEIN 7.5 GM/DL (6.4-8.2)
--- NOTE | 2017-12-31 08:52 | HHI.PR ---
Subjective Remarks no complains now very otivatd with lifestuyle changes exercise and diet modification Objective Vitals Vital Signs Date Time Temp Pulse Resp B/P (MAP) Pulse Ox O2 Delivery O2 Flow Rate FiO2 12/31/17 04:00 68 16 96 12/31/17 00:00 66 16 98 12/31/17 00:00 66 12/30/17 22:45 71 12/30/17 22:45 72 16 175/96 (122) 98 12/30/17 16:21 97 Room Air 12/30/17 15:00 72 12/30/17 11:29 (86) I/O 12/30/17 12/30/17 12/30/17 12/31/17 12/31/17 12/31/17 07:00 15:00 23:00 07:00 15:00 23:00 Intake Total 240 ml Output Total 301 ml Balance -61 ml Intake Oral 240 ml Output Urine Total 300 ml Stool Total 1 ml # Voids 2 Result Diagram: 12/31/17 0439 12/31/17 0439 Objective Remarks awake and alet, no acute distress anciteric lungs- clear regular rhythm abdomen soft, globular non tender right groin- no hematoma good epripheral pulses extremities no edema Procedures 12/30- cardiac cath A/P Assessment and Plan 47-year-old male presented to [facility] with chest pain x1 week, acutely worsened last night. Patient was given morphine, ASA, nitropaste and pain has since resolved. He has multiple risk factors for a cardiac source of chest pain , including history of tobacco use, HLD, father with [place] at 56, obesity, and sedentary lifestyle. Patient does not have a PCP and has not seen a physician in many years. Initial EKG was negative and showed NSR with no ischemic change, but second EKG showed T-wave inversion in V4, V5 and V6. This change prompted admission to [facility]. Heparin was started. Troponin x3 negative at <0.02 CXR 12/29 was negative for acute cardiopulmonary disease. denies any history of HTN, DM, not taking any meds ACS- unstable angina S/P cath- 70% LAD lesion , normal LV function medical management - ASA, BB, statins Obesity- counselled on weight reduction and exercise HYperlipdemia- start statin. dietary consult Tobacco use - Counseled on smoking cessation Obstructive Sleep Apnea - Uses CPAP at home nightly, will continue in hospital DVT pp scd/teds Up and ambulate Possible DC toay once cleared with cardiology Discussed Condition With pt and Celeste Cormier MD December 31, 2017 08:52
[2017-12-31] MEDS ORDERED: METOPROLOL SUCCINATE 25 MG EXTENDED RELEASE TAB PO SCH (09:00)
[2017-12-31] MEDS ORDERED: ASPIRIN 81 MG CHEW TAB PO SCH (09:00)
[2017-12-31] MEDS: SODIUM CHLORIDE 0.9% FLUSH 10 ML FLUSH IV FLUSH SCH (09:00)
[2017-12-31] MEDS ORDERED: IOHEXOL 350 MG/ML 100 ML BTL (for Cath Lab) OTHER ONE (09:07)
[2017-12-31] MEDS ORDERED: METO1TAB42 PO (13:51)
[2017-12-31] MEDS ORDERED: ASPI81 PO (13:51)
[2017-12-31] MEDS ORDERED: ATOR40TA16 PO (13:51)
--- NOTE | 2017-12-31 14:01 | PD.CARD.PN ---
Subjective Subjective Remarks alert in nad, assymptomatic Objective Medications Current Medications Medications (Trade) Dose Ordered Sig/Carmelo Route Start Time Stop Time Status Last Admin (Tylenol) 650 mg Q4H PRN PO 12/30/17 02:00 (Narcan Inj) 0.4 mg UNSCH PRN IV PUSH 12/30/17 02:00 (Milk Of Magnesia Liq) 30 ml Q12H PRN PO 12/30/17 02:00 (Senokot) 17.2 mg Q12H PRN PO 12/30/17 02:00 (Dulcolax Supp) 10 mg DAILY PRN RECTAL 12/30/17 02:00 (Lactulose Liq) 30 ml DAILY PRN PO 12/30/17 02:00 (NS Flush) 2 ml UNSCH PRN IV FLUSH 12/30/17 16:30 (NS Flush) 2 ml BID IV FLUSH 12/30/17 21:00 12/31/17 09:00 (Aspirin Chew) 162 mg DAILY PO 12/31/17 09:00 12/31/17 09:13 (Toprol Xl) 25 mg DAILY PO 12/31/17 09:00 12/31/17 09:13 (Lipitor) 40 mg HS PO 12/31/17 21:00 Vital Signs / I&O Vital Signs Date Time Temp Pulse Resp B/P (MAP) Pulse Ox O2 Delivery O2 Flow Rate FiO2 12/31/17 07:00 71 12/31/17 07:00 98.7 82 16 150/90 (110) 98 12/31/17 04:00 68 16 96 12/31/17 00:00 66 16 98 12/31/17 00:00 66 12/30/17 22:45 71 12/30/17 22:45 72 16 175/96 (122) 98 12/30/17 16:21 97 Room Air 12/30/17 15:00 72 I/O 12/30/17 12/30/17 12/30/17 12/31/17 12/31/17 12/31/17 07:00 15:00 23:00 07:00 15:00 23:00 Intake Total 240 ml Output Total 301 ml Balance -61 ml Intake Oral 240 ml Output Urine Total 300 ml Stool Total 1 ml # Voids 2 Laboratory Laboratory Tests Test 12/31/17 04:39 White Blood Count 7.9 TH/MM3 Red Blood Count 5.13 MIL/MM3 Hemoglobin 14.5 GM/DL Hematocrit 42.7 % Mean Corpuscular Volume 83.3 FL Mean Corpuscular Hemoglobin 28.3 PG Mean Corpuscular Hemoglobin Concent 33.9 % Red Cell Distribution Width 14.1 % Platelet Count 268 TH/MM3 Mean Platelet Volume 8.4 FL Neutrophils (%) (Auto) 66.6 % Lymphocytes (%) (Auto) 24.6 % Monocytes (%) (Auto) 6.1 % Eosinophils (%) (Auto) 2.3 % Basophils (%) (Auto) 0.4 % Neutrophils # (Auto) 5.3 TH/MM3 Lymphocytes # (Auto) 1.9 TH/MM3 Monocytes # (Auto) 0.5 TH/MM3 Eosinophils # (Auto) 0.2 TH/MM3 Basophils # (Auto) 0.0 TH/MM3 CBC Comment DIFF FINAL Differential Comment Blood Urea Nitrogen 11 MG/DL Creatinine 1.00 MG/DL Random Glucose 89 MG/DL Total Protein 7.5 GM/DL Albumin 3.8 GM/DL Calcium Level 8.6 MG/DL Alkaline Phosphatase 93 U/L Aspartate Amino Transf (AST/SGOT) 16 U/L Alanine Aminotransferase (ALT/SGPT) 33 U/L Total Bilirubin 0.6 MG/DL Direct Bilirubin 0.1 MG/DL Sodium Level 142 MEQ/L Potassium Level 4.0 MEQ/L Chloride Level 104 MEQ/L Carbon Dioxide Level 26.7 MEQ/L Anion Gap 11 MEQ/L Estimat Glomerular Filtration Rate 81 ML/MIN Indirect Bilirubin 0.5 MG/DL Total Creatine Kinase 99 U/L Triglycerides Level 194 MG/DL Cholesterol Level 201 MG/DL LDL Cholesterol 130 MG/DL HDL Cholesterol 32.5 MG/DL Cholesterol/HDL Ratio 6.18 RATIO Imaging GENERAL: SKIN: Warm and dry. HEAD: Normocephalic. EYES: No scleral icterus. No injection or drainage. NECK: Supple, trachea midline. No JVD or lymphadenopathy. CARDIOVASCULAR: Regular rate and rhythm without murmurs, gallops, or rubs. RESPIRATORY: Breath sounds equal bilaterally. No accessory muscle use. GASTROINTESTINAL: Abdomen soft, non-tender, nondistended. MUSCULOSKELETAL: No cyanosis, or edema. BACK: Nontender without obvious deformity. No CVA tenderness. Assessment and Plan Problem List: (1) CAD (coronary artery disease) ICD Codes: I25.10 - Atherosclerotic heart disease of [place] coronary artery without angina pectoris Assessment and Plan 1.) CAD - ffr lad =.83, continue aspirin, start lipitor 40 mg hs; ok to dc from cv standpoint Marino Knight MD December 31, 2017 14:00
--- NOTE | 2017-12-31 18:08 | EKG ---
Date Performed: 12/30/2017 Time Performed: 19:49:10 PTAGE: 47 years EKG: Sinus rhythm Since the previous tracing, no significant change noted Normal ECG NO PREVIOUS TRACING DOCTOR: Susanna Ortiz Interpretating Date/Time 12/31/2017 18:00:09
--- NOTE | 2017-12-31 18:08 | EKG ---
Date Performed: 12/31/2017 Time Performed: 06:18:06 PTAGE: 47 years EKG: Sinus rhythm Since the previous tracing, no significant change noted Normal ECG PREVIOUS TRACING : 12/30/2017 19.49 DOCTOR: Susanna Ortiz Interpretating Date/Time 12/31/2017 18:00:20
[2017-12-31] MEDS ORDERED: ATORVASTATIN 40 MG TAB PO SCH (21:00)
[2017-12-31] MEDS ORDERED: ATORVASTATIN 20 MG TAB PO SCH (21:00)
== END 2017-12-31 16:18 | disposition home or self-care (01) ==
LOC: NEPC 00:27 → NEDA 02:02 → UNDOADMOB 06:48 → NEDA 11:38 → NEPGCP 11:38 → HCIS 15:37 → NEPGCP 15:37 → OBSVTOIN 16:23 → INTOOBSV 16:23 → HCIS 22:45 → UNDODISOB 12-31 16:18
PROVIDERS: ADMIT Internal Medicine; ATTEND Internal Medicine
DX: I25.110 Atherosclerotic heart disease of native coronary artery with unstable angina pectoris (principal); E78.5 Hyperlipidemia, unspecified; R06.00 Dyspnea, unspecified; G47.33 Obstructive sleep apnea (adult) (pediatric); F17.210 Nicotine dependence, cigarettes, uncomplicated; R53.83 Other fatigue; R79.1 Abnormal coagulation profile; Z82.49 Family history of ischemic heart disease and other diseases of the circulatory system; Z71.6 Tobacco abuse counseling
CPT/HCPCS: 71046; 80048; 80061; 80076; 82550; 83735; 84484; 85002; 85025; 85347; 85610; 85730; 93005; 93458; 93571; 96374; 96375; 99152; 99153; 99285; C1769; C1887; C1893; G0378; J0153; J1644; J2250; J2270; J3010; Q9967

== ENCOUNTER 2018-03-06 21:52 | Observation (INO) ==
[2018-03-07] MEDS ORDERED: Acetaminophen 500 MG Tablet PO PRN (07:44)
[2018-03-07] MEDS ORDERED: Aspirin 325 MG Tablet PO SCH (09:00)
--- NOTE | 2018-03-07 09:16 | P.HPCA ---
History of Present Illness Primary Care Physician: No Primary Care Physician Chief Complaint: Chest pressure History of Present Illness: 48-year-old male with history of hypertension, hyperlipidemia, and coronary artery disease presents to emergency room for further evaluation of chest pain. Onset Wednesday 1000 a.m. immediately after eating a bowl of cereal. Location substernal. Characterized as pressure and tightness. Associated symptoms included nausea. Denied vomiting, dyspnea, or diaphoresis. Intermittent discomfort all weekend. Difficult for him to give detailed duration of discomfort. Wednesday pressure lingered all day, became more intense in evening hours. No precipitating or relieving factors. Continued to have chest pressure as stated above, resolving short amount of time during sleep. Similar pain 2 months ago which led to cardiac catheterization by Dr. Knight. Cardiac catheterization revealed 70% long stenosis in mid segment of of the bifurcation. Placed on an antihypertensive and statin therapy. No further chest pain since cardiac catheterization. In fact, began an exercise regimen including 30 minutes of cycling without developing chest discomfort. Followed with Dr. Knight after discharge and completed echocardiogram. Unfortunately has not established with a primary care provider as of yet. No recent illness or injury. Denies any emotional stress or increase in situational stress. Past cardiac testing 12/30/2017 Cardiac catheterization (Dr. Knight) conclusion: 1. Unstable angina , [place] cardiovascular Society class IV angina. Probable culprit 70% mid LAD lesion as detailed above. The patient may possibly have some spasm in addition to the 70% stenosis induced by tobacco use. 2. Otherwise, moderate disease in right coronary artery as detailed above. 3. Normal left ventricular systolic function, ejection fraction 60%. 4. Recommended medical management for coronary artery disease, cardiac risk factor modification. 5. Strongly recommended smoking sensation. Patient intensively counseled by myself. - Diagnosis (1) Chest pain of uncertain etiology (2) H/O: hypertension (3) Coronary artery disease Review of Systems All other systems reviewed negative except as stated in HPI Cardiovascular: Denies chest pain with activity, Denies fast heart rate, Denies generalized swelling, Denies rapid, pounding, or irregular heartbeat, Denies shortness of breath, Denies shortness of breath when lying down Respiratory: Denies chest congestion, Denies cough, Denies pain on inspiration PMFSH - History History Provided By: Patient - Medical History Medical History: Medical History (Last Updated 03/07/18 @ 10:30 by EVELINA Rodriguez) Coronary artery disease Sleep apnea in adult HTN (hypertension) Hypercholesterolemia - Surgical History Surgical History: Surgical History (Last Reviewed 03/07/18 @ 10:30 by EVELINA Rodriguez) H/O cardiac catheterization - Family History Family History: Family History (Last Updated 03/07/18 @ 10:33 by EVELINA Rodriguez) Father Myocardial infarct Mother CVA (cerebral vascular accident) - Tobacco History Second Hand Smoke Exposure: No Smoking Status: Former smoker - Alcohol History How Often Do You Have a Drink Containing Alcohol: Never - Substance Use History Substance History: No History of Abuse - Travel History Recent Travel Out of the Country Within the Last 8 Weeks: No Medications and Allergies Active Medications: Active Medications Acetaminophen (Tylenol) 500 mg PO Q4H PRN PRN Reason: HEADACHE Aspirin (Aspirin) 325 mg PO DAILY ALEA Nitroglycerin (Nitrostat Sl) 0.4 mg SL Q5M PRN PRN Reason: CHEST PAIN Sodium Chloride (Ns Flush) 2 ml IV.FLUSH BID ALEA Sodium Chloride (Ns Flush) 2 ml IV.FLUSH UNSCH PRN PRN Reason: FLUSH AFTER USING IV ACCESS Allergies Allergy/AdvReac Type Severity Reaction Status Date / Time No Known Allergies Allergy Verified 03/06/18 22:23 Home Medications Medication Instructions Recorded Confirmed Type amlodipine 5 mg PO DAILY 03/06/18 03/06/18 History aspirin 162 mg PO DAILY 03/06/18 03/06/18 History atorvastatin 40 mg PO DAILY 03/06/18 03/06/18 History Exam Vital signs: Vital Signs 03/07/18 03:54 Temperature 98.3 F Pulse Rate 57 L Respiratory Rate 17 Blood Pressure 129/79 Pulse Oximetry 96 Narrative: Very pleasant obese male in no acute distress. - Constitutional no acute distress, obese, cooperative - Routine HEENT Exam Head: Present: normocephalic, atraumatic - Routine Neck Exam Present: supple, full ROM. Absent: JVD - Routine Chest/Breast/Axilla Exam Chest wall: Absent: tenderness - Routine Respiratory Exam Present: CTA bilaterally. Absent: rales, rhonchi, wheezes, crackles - Routine Cardiovascular Exam Present: RRR. Absent: murmur, gallop, rubs Comments: Chest wall nontender with palpation. - Routine Abdominal Exam Present: soft, normoactive bowel sounds. Absent: tenderness, distended - Routine Extremities Exam Present: full ROM, pulses intact. Absent: edema - Routine Skin Exam Present: intact, warm - Routine Neurological Exam Present: alert, oriented X3, CN II-XII intact, moving all extremities, normal tone, normal speech - Routine Psychiatric Exam Present: normal affect, normal thought process, cooperative, good insight, good judgment EKG interpretations - EKG EKG results cardiology: WNL, sinus rhythm, normal axis, normal QRS, normal ST/T Caprini VTE Risk Assessment Caprini VTE Risk Assessment: No/Low Risk (score <= 1) Caprini Risk Assessment Model: Point Value = 1 Point Value = 2 Point Value = 3 Point Value = 5 Age 41-60 Minor surgery BMI > 25 kg/m2 Swollen legs Varicose veins or History of unexplained or recurrent spontaneous Oral contraceptives or hormone replacement Sepsis (< 1 month) Serious lung disease, including pneumonia (< 1 month) Abnormal pulmonary function Acute myocardial infarction Congestive heart failure (< 1 month) History of inflammatory bowel disease Medical patient at bed rest Age 61-74 Arthroscopic surgery Major open surgery (> 45 min) Laparoscopic surgery (> 45 min) Malignancy Confined to bed (> 72 hours) Immobilizing plaster cast Central venous access Age >= 75 History of VTE Family history of VTE Factor V Leiden Prothrombin [id number] Lupus anticoagulant Anticardiolipin antibodies Elevated serum homocysteine Heparin-induced thrombocytopenia Other congenital or acquired thrombophilia Stroke (< 1 month) Elective arthroplasty Hip, pelvis, or leg fracture Acute spinal cord injury (< 1 month) Prophylaxis Regimen: Total Risk Factor Score Risk Level Prophylaxis Regimen 0-1 Low Early ambulation 2 Moderate Order ONE of the following: *Sequential Compression Device (SCD) *Heparin 5000 units SQ BID 3-4 Higher Order ONE of the following medications: *Heparin 5000 units SQ TID *Enoxaparin/Lovenox 40 mg SQ daily (WT < 150 kg, CrCl > 30 mL/min) *Enoxaparin/Lovenox 30 mg SQ daily (WT < 150 kg, CrCl > 10-29 mL/min) *Enoxaparin/Lovenox 30 mg SQ BID (WT < 150 kg, CrCl > 30 mL/min) AND/OR *Sequential Compression Device (SCD) 5 or more Highest Order ONE of the following medications: *Heparin 5000 units SQ TID (Preferred with Epidurals) *Enoxaparin/Lovenox 40 mg SQ daily (WT < 150 kg, CrCl > 30 mL/min) *Enoxaparin/Lovenox 30 mg SQ daily (WT < 150 kg, CrCl > 10-29 mL/min) *Enoxaparin/Lovenox 30 mg SQ BID (WT < 150 kg, CrCl > 30 mL/min) AND *Sequential Compression Device (SCD) Assessment and Plan - Assessment (1) Chest pain of uncertain etiology Code(s): R07.89 - Other chest pain Status: Acute Onset Date: ~03/04/18 Plan: Admitted to chest pain center. ACS ruled out with 3 sets of EKGs and cardiac enzymes. Will be seen and evaulated by Dr. Dre Reinoso. Likely will proceed with myocardiac perfusion study this morning. If unremarkable, plans will be to discharge home with follow up with and to establish with a primary care provider. If stress testing positive, plans to admit patient to hospitalist group and grinder set up operator internal. Verbalizes understanding and agreeable to plan of care. (2) H/O: hypertension Code(s): Z86.79 - Personal history of other diseases of the circulatory system Status: Chronic Plan: Continue amlodipine. Encouraged efforts of weight loss, increasing daily activity, and smoking sensation. Discussed low-sodium diet of no more than 2000 mg sodium daily. (3) Coronary artery disease Code(s): I25.10 - Atherosclerotic heart disease of [place] coronary artery without angina pectoris Status: Chronic Plan: Continue aspirin and statin therapy. Encouraged establishing with a primary care provider and always maintaining contact with a grinder set up operator internal.
[2018-03-07] MEDS ORDERED: Regadenoson Inj 0.4 MG/5 ML Syringe IV.PUSH ONE (10:08)
[2018-03-07] MEDS ORDERED: amLODIPine 5 MG Tablet PO SCH (11:00)
--- NOTE | 2018-03-07 12:13 | NM ---
EXAM DATE: 03/07/2018 11:35 AM EDT AGE/SEX: 48 years / Male INDICATIONS:Angina. . Substernal chest pain. CLINICAL DATA: This is the patient's initial encounter. Patient reports that signs and symptoms have been present for 1 day and indicates a pain score of 0/10. MEDICAL/SURGICAL HISTORY: Hypertension. . Cardiac catherization. COMPARISON: No prior exams available for comparison. DOSE: 11.0 mCi Tc 99m Myoview at rest 35.0 mCi [id number] at stress 0.4 mg Lexiscan STRESS SYMPTOMS: Dyspnea and weird feeling. EJECTION FRACTION: 58 % TECHNIQUE: The patient underwent pharmacologic stress with infusion of prescribed dose. Continuous ECG tracing was monitored during stress. Gated SPECT imaging was performed after stress and conventi onal SPECT imaging was performed at rest. The examination was performed on a SPECT/CT scanner, both attenuation and non-corrected datasets were reviewed. FINDINGS: Distribution: The maximum perfused segment at stress is in the septal wall. Perfusion Study: There is mild decreased activity seen in the stress images at the lateral wall at the mid ventricle level. The difference is in the order of 10-20% which is borderline for ischemia. Gated Study: There are intact wall motion and wall thickening without hypokinetic or dyskinetic segm ents. The ejection fraction is calculated at 58%. RISK CATEGORY: Low (<1% Annual Motality Rate) CONCLUSION: Mild area of decreased activity seen at the mid ventricle at the lateral wall on the stress images co mpared to the rest images. The difference is in the order of 10-20% which is borderline for ischemia. Electronically signed by: Pranav Viveros MD 03/07/2018 12:11 PM EDT
[2018-03-07 12:18] VITALS: BP 115/70; PULSE 57; RESP 18; TEMP 97.9; O2SAT 96
--- NOTE | 2018-03-07 12:55 | P.PNCA ---
Subjective Interval history: Patient was presented by the nurse practitioner subsequently documentation was reviewed laboratory radiographic and electrocardiographic data was all reviewed. The patient was then seen personally and examined. I saw the patient after completion of his full evaluation including a nuclear stress test. His was present at bedside at this time and so the discussion centered around his evaluation and the outcome of the evaluation. 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 His history including his original catheterization and follow-up were all discussed in detail. His symptoms are certainly suggestive of possible ongoing ischemia which is substantiated with the knowledge that he has fairly high-grade disease in diagonal vessels and shows mild ischemia over the anterior lateral wall. The ischemia is very mild and 10-20% range and in a very limited area. Decision was made after full discussion with the patient and to treat him medically with the addition of beta blockers and long-acting nitrates with the understanding that she will obtain follow-up consultation with the [facility] heart group within the week. I have explained that while there is some slight risk treating him as an outpatient that this risk should be small and that the benefits are to have him managed under the care of someone of his choice and with consistency. Also firmly instructed that if he has recurrent issues with discomfort he is to come to the emergency room again immediately. Physical Exam Vital signs: Vital Signs 03/07/18 03:54 03/07/18 08:00 03/07/18 12:00 Temperature 98.3 F 98.0 F 97.9 F Pulse Rate 57 L 55 L 57 L Respiratory Rate 17 20 18 Blood Pressure 129/79 116/70 115/70 Pulse Oximetry 96 94 L 96 Narrative: Obese gentleman resting comfortably in bed with his at the bedside Physical exam is consistent with that described with no additional input at this time Assessment and Plan - Assessment (1) Chest pain of uncertain etiology Code(s): R07.89 - Other chest pain Status: Acute Onset Date: ~03/04/18 Plan: Admitted to chest pain center. ACS ruled out with 3 sets of EKGs and cardiac enzymes. Will be seen and evaulated by Dr. Dre Reinoso. Likely will proceed with myocardiac perfusion study this morning. If unremarkable, plans will be to discharge home with follow up with and to establish with a primary care provider. If stress testing positive, plans to admit patient to hospitalist group and event lighting specialist. Verbalizes understanding and agreeable to plan of care. After full discussion with the patient and the decision was made to had both a long-acting beta-robert and long-acting nitrate to his current regime. He is to continue with his healthy lifestyle modification. He is to establish a follow-up visit with [facility] heart group on an urgent basis. His assures me that she can put him on the schedule this week probably with Dr. Ortiz. He is also instructed to return to the emergency room if he has recurrent discomfort. (2) H/O: hypertension Code(s): Z86.79 - Personal history of other diseases of the circulatory system Status: Chronic Plan: Continue amlodipine. Encouraged efforts of weight loss, increasing daily activity, and smoking sensation. Discussed low-sodium diet of no more than 2000 mg sodium daily. (3) Coronary artery disease Code(s): I25.10 - Atherosclerotic heart disease of [place] coronary artery without angina pectoris Status: Chronic Plan: Continue aspirin and statin therapy. Encouraged establishing with a primary care provider and always maintaining contact with a event lighting specialist. (3) Coronary artery disease Qualifiers: Associated angina: angina presence unspecified
--- NOTE | 2018-03-08 16:56 | TR ---
Date Performed: 03/07/2018 Time Performed: 10:28:16 DOCTOR: Susanna Ortiz DRUG LIST: CLINICAL HISTORY: REASON FOR TEST: REASON FOR ENDING: OBSERVATION: CONCLUSION: Lexiscan stress test was performed under standard four minute protocol. Radionuclid e was injected one minute prior to ending the test. No electrocardiographic abormalities were present to suggest ischemia. Nuclear imaging and interpretation are pending. COMMENTS: no ischemia
--- NOTE | 2018-03-08 16:57 | ECG ---
Date Performed: 03/07/2018 Time Performed: 03:51:07 PTAGE: 48 years EKG: SINUS BRADYCARDIA BORDERLINE ECG Since PREVIOUS TRACING , no significant change noted PREVIOUS TRACIN03/06/2018 22.11 DOCTOR: Susanna Ortiz Interpretating Date/Time 03/08/2018 16:55:00
== END 2018-03-07 15:00 | disposition home or self-care (01) ==
LOC: NEDDLT 21:52 → NEPFCDU 21:52

== ENCOUNTER 2018-09-26 13:35 | Observation (INO) ==
[2018-09-27 00:53] LABS: Creatine Kinase 96 U/L (39-308)
--- NOTE | 2018-09-27 09:09 | ECG ---
Date Performed: 09/27/2018 Time Performed: 00:40:24 PTAGE: 48 years EKG: Sinus rhythm NORMAL ECG Since PREVIOUS TRACING , no significant change noted PREVIOUS TRACIN09/12/2018 17.18 DOCTOR: Susanna Ortiz Interpretating Date/Time 09/27/2018 09:07:39
[2018-09-27] MEDS ORDERED: Acetaminophen 500 MG Tablet PO PRN (09:29)
--- NOTE | 2018-09-27 09:29 | P.HPCA ---
History of Present Illness Primary Care Physician: No Primary Care Physician Chief Complaint: Chest pain History of Present Illness: 48 year old male with recent stent placed to LAD on 09/13/18 presents to ER for further evaluation of chest pain. Onset last evening. Location substernal. Characterized a "bubbling sensation, like pressure." No radiation. Associated symptoms of nausea, vomiting, dyspnea, or diaphoresis. Precipitating factors he relates to eating, reports discomfort occurred one hour after eating. No relieving factors. No current discomfort. Initially reported discomfort reminded him of same cHEST: Nontender throughout without deformity or crepitance. No retractions or use of accessory muscles. Discomfort 2 weeks ago before cardiac stent placed, however upon further discussion yesterday episode unlike previous chest discomfort. No recent illness, injury, or fever. Endorses taking cardiac medications as prescribed. Past cardiac testing 09/13/18 Cardiac catheterization (Dr. Alvarado) Impressions: 1. Unstable angina on multiple antianginals. 2. Status post [place] drug eluting stent (3x18) tube proximal and mid left anterior descending with balloon angioplasty of ostial diagonal at the bifurcation. 03/07/18 Lexiscan-Conclusion: Mild area of decreased activity seen at the mid ventricle of the lateral wall on the stress images compared to the rest images. The differences in the order of 10-20% which is borderline for ischemia. 12/30/2017 Cardiac catheterization (Dr. Knight) Conclusions: 1. Unstable angina, [place] cardiovascular Society class IV angina. Probable culprit lesion 70% mid LAD lesion as detailed above. The patient may possibly have some spasm in addition to the 70% stenosis induced by tobacco use. 2. Otherwise , moderate disease in the right coronary artery as detailed above. 3. Normal left ventricular systolic function, ejection fraction 60%. 4. Recommended medical management of coronary artery disease, cardiac risk factor modification. 5. Strongly recommended smoking cessation. Social history Known CAD, hypertension, and hyperlipidemia. No known diabetes. Former 1 pack day smoker. Quit one year ago. No alcohol or recreational drug use. . 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 Endorses sedentary lifestyle from reported chronic right knee pain. Family history Father age 56 [place]. - Diagnosis (1) Chest pain of uncertain etiology (2) H/O: hypertension (3) Coronary artery disease (4) GERD (gastroesophageal reflux disease) Review of Systems All other systems reviewed negative except as stated in HPI PMFSH - History History Provided By: Patient - Medical History Medical History: Medical History (Last Reviewed 09/26/18 @ 18:55 by Magdalena Nelson MD) Coronary artery disease HTN (hypertension) Hx of tear of meniscus of knee joint Hypercholesterolemia Sleep apnea in adult - Surgical History Surgical History: Surgical History (Last Updated 09/27/18 @ 09:42 by EVELINA Rordiguez) H/O cardiac catheterization Stented coronary artery - Family History Family History: Family History (Last Reviewed 09/26/18 @ 18:55 by Magdalena Nelson MD) Father Myocardial infarct Mother CVA (cerebral vascular accident) - Tobacco History Second Hand Smoke Exposure: No Smoking Status: Former smoker - Alcohol History How Often Do You Have a Drink Containing Alcohol: 2 to 4 times a month - Substance Use History Substance History: No History of Abuse - Travel History Recent Travel in the [facility] Within the Last 8 Weeks: No Recent Travel Out of the Country Within the Last 8 Weeks: No Medications and Allergies Allergies Allergy/AdvReac Type Severity Reaction Status Date / Time No Known Allergies Allergy Verified 03/06/18 22:23 Home Medications Medication Instructions Recorded Confirmed Type aspirin 162 mg PO DAILY 03/06/18 09/27/18 History Exam Vital signs: Vital Signs 09/26/18 23:59 09/27/18 04:00 09/27/18 07:08 Temperature 98.1 F 98.6 F 98.6 F Pulse Rate 66 67 64 Respiratory Rate 18 20 18 Blood Pressure 138/82 135/76 138/72 Pulse Oximetry 100 96 95 Intake & Output 09/26/18 09/27/18 09/27/18 18:59 06:59 18:59 Weight 124.6 kg Other: Weight On Admission 124.6 kg Narrative: GENERAL: Alert WN, WD, NAD, pleasant, obese male HEAD: NC, AT EYES: Sclera clear, conjunctiva without injection, pupils equal and round ENT: Mucous membranes pink and moist NECK: Supple, no masses, trachea midline CV: RRR, without murmur, rub, gallop, no JVD. Chest wall nontender to palpation. RESP: Clear lungs throughout bilateral, no crackles, wheeze, rhonchi, symmetrical chest rise, nonlabored, able to speak in full sentences ABD: Soft, NT, ND, no masses, positive bowel tones EXT: Pulses +2x4, no dependent edema MS: Normal tone x4 extremities, nontender, no obvious deformities, full range of motion NEURO: Motor strength 5/5 PSYCH: A+O x3, pleasant affect, appropriate speech, mood, insight and judgment SKIN: Normal turgor, normal texture, no lesions, no rashes, brisk cap refill, even hair distribution Results Cardiac Enzymes 09/27/18 Range/Units 00:06 Troponin I Less than 0.02 L (0.02-0.05) ng/mL Intake and Output 09/26/18 09/27/18 09/27/18 22:59 06:59 14:59 Other: Weight 124.6 kg Weight On Admission 124.6 kg EKG interpretations - EKG EKG results cardiology: sinus rhythm, normal axis, normal QRS, normal ST/T Caprini VTE Risk Assessment Caprini VTE Risk Assessment: No/Low Risk (score <= 1) Caprini Risk Assessment Model: Point Value = 1 Point Value = 2 Point Value = 3 Point Value = 5 Age 41-60 Minor surgery BMI > 25 kg/m2 Swollen legs Varicose veins or History of unexplained or recurrent spontaneous Oral contraceptives or hormone replacement Sepsis (< 1 month) Serious lung disease, including pneumonia (< 1 month) Abnormal pulmonary function Acute myocardial infarction Congestive heart failure (< 1 month) History of inflammatory bowel disease Medical patient at bed rest Age 61-74 Arthroscopic surgery Major open surgery (> 45 min) Laparoscopic surgery (> 45 min) Malignancy Confined to bed (> 72 hours) Immobilizing plaster cast Central venous access Age >= 75 History of VTE Family history of VTE Factor V Leiden Prothrombin [id number] Lupus anticoagulant Anticardiolipin antibodies Elevated serum homocysteine Heparin-induced thrombocytopenia Other congenital or acquired thrombophilia Stroke (< 1 month) Elective arthroplasty Hip, pelvis, or leg fracture Acute spinal cord injury (< 1 month) Prophylaxis Regimen: Total Risk Factor Score Risk Level Prophylaxis Regimen 0-1 Low Early ambulation 2 Moderate Order ONE of the following: *Sequential Compression Device (SCD) *Heparin 5000 units SQ BID 3-4 Higher Order ONE of the following medications: *Heparin 5000 units SQ TID *Enoxaparin/Lovenox 40 mg SQ daily (WT < 150 kg, CrCl > 30 mL/min) *Enoxaparin/Lovenox 30 mg SQ daily (WT < 150 kg, CrCl > 10-29 mL/min) *Enoxaparin/Lovenox 30 mg SQ BID (WT < 150 kg, CrCl > 30 mL/min) AND/OR *Sequential Compression Device (SCD) 5 or more Highest Order ONE of the following medications: *Heparin 5000 units SQ TID (Preferred with Epidurals) *Enoxaparin/Lovenox 40 mg SQ daily (WT < 150 kg, CrCl > 30 mL/min) *Enoxaparin/Lovenox 30 mg SQ daily (WT < 150 kg, CrCl > 10-29 mL/min) *Enoxaparin/Lovenox 30 mg SQ BID (WT < 150 kg, CrCl > 30 mL/min) AND *Sequential Compression Device (SCD) Assessment and Plan - Assessment (1) Chest pain of uncertain etiology Code(s): R07.89 - Other chest pain Status: Acute Onset Date: ~03/04/18 Plan: Admitted to chest pain center. Monitor on telemetry overnight. ACS ruled out with 3 sets of EKGs and cardiac enzymes. Seen and evaluated by Dr. Susanna Ortiz. Call was placed to patient's doctor of nurse anesthesia, Dr. Alvarado. Dr. Alvarado previously made aware by ER patient's arrival to Er. Discussed plan to proceed with nuclear treadmill today and if unremarkable discharge home with follow up with a GI specialist. Patient agreeable to plan of care. (2) H/O: hypertension Code(s): Z86.79 - Personal history of other diseases of the circulatory system Status: Chronic Plan: Continue metoprolol, amlodipine, and lisinopril. (3) Coronary artery disease Code(s): I25.10 - Atherosclerotic heart disease of [place] coronary artery without angina pectoris Status: Chronic Plan: Continue atorvastatin, isosorbide, and Brilinta. (4) GERD (gastroesophageal reflux disease) Code(s): K21.9 - Gastro-esophageal reflux disease without esophagitis Status: Acute Plan: GI cocktail given in ER. Pepcid 20 mg twice daily. H&P: Quality - VTE Deep Vein Thrombosis/Pulmonary Embolism Present on Admission: No (3) Coronary artery disease Qualifiers: Coronary Disease-Associated Artery/Lesion type: [place] artery [place] vs. transplanted heart: [place] heart Associated angina: angina presence unspecified Qualified Code(s): I25.10 - Atherosclerotic heart disease of [place] coronary artery without angina pectoris (4) GERD (gastroesophageal reflux disease) Qualifiers: Esophagitis presence: esophagitis presence not specified Qualified Code(s): K21.9 - Gastro-esophageal reflux disease without esophagitis
[2018-09-27] MEDS ORDERED: amLODIPine 5 MG Tablet PO SCH (10:00)
[2018-09-27] MEDS ORDERED: Famotidine 20 MG Tablet PO SCH (11:00)
[2018-09-27 11:54] VITALS: BP 136/83; RESP 16; TEMP 98.4; O2SAT 93
[2018-09-27] MEDS ORDERED: Lisinopril 5 MG Tablet PO SCH (12:00)
[2018-09-27 13:27] VITALS: PULSE 75
--- NOTE | 2018-09-27 14:43 | NM ---
EXAM DATE: 09/27/2018 2:28 PM EST AGE/SEX: 48 years / Male INDICATIONS: Angina. Coronary artery disease Substernal chest pain. CLINICAL DATA: This is the patient's initial encounter. Patient reports that signs and symptoms have been present for 1 day and indicates a pain score of 4/10. MEDICAL/SURGICAL HISTORY: Hypertension. Hypercholesterolemia. Coronary artery stent. COMPARISON: No prior exams available for comparison. DOSE: 11 mCi Tc 99m Myoview at rest 35 mCi [id number] at stress REST HEART RATE: 87 BPM TARGET HEART RATE: 148 BPM MAX HEART RATE: 157 BPM REST BLOOD PRESSURE: 128/78 mmHg MAX BLOOD PRESSURE: 128/80 mmHg EJECTION FRACTION: 69 % TECHNIQUE: The patient underwent upright treadmill exercise in the chest pain center. Continuous EC G tracing was monitored during stress. Gated SPECT imaging was performed after stress, and conventio nal SPECT imaging was performed at rest. The examination was performed on a SPECT/CT scanner, both a ttenuation-corrected and non-corrected datasets were reviewed. FINDINGS: Distribution: The maximum perfused segment at stress is in the lateral wall. Perfusion: The pattern of perfusion at stress is within normal limits. Gated Study: There are intact wall motion and wall thickening without hypokinetic or dyskinetic segme nts. The ejection fraction is calculated at 69%. RISK CATEGORY: Low (<1% Annual Mortality Rate) CONCLUSION: Within normal limits. No stress-induced ischemia or abnormal wall motion demonstrated. Electronically signed by: Pranav Carty MD Board Certified Radiologist 09/27/2018 2:41 PM EST
--- NOTE | 2018-09-27 16:42 | TR ---
Date Performed: 09/27/2018 Time Performed: 13:14:06 DOCTOR: Susanna Ortiz DRUG LIST: CLINICAL HISTORY: REASON FOR TEST: REASON FOR ENDING: OBSERVATION: CONCLUSION: Karri protocol completed. Stopped sec to knee pain and exceeding target heart rate. Maximum EG=636 Max HR Achieved=91.0% Resting ZE=907/78 Total Exercise Time=7:31. No reprod chest pain . No ectopy. No st t segment changes. Normal bp response. Fair exercise tolerance. Normal bp response . Recovery quick and unremarkable. Nulcear images pending. COMMENTS: No ischemia
[2018-09-27] MEDS ORDERED: Metoprolol Tartrate 50 MG Tablet PO SCH (21:00)
== END 2018-09-27 15:26 | disposition home or self-care (01) ==
LOC: NEDDLT 22:00 → NEPFCDU 22:00
PROVIDERS: ADMIT Internal Medicine Interventional Cardiology; ATTEND Internal Medicine Interventional Cardiology
CPT/HCPCS: 71010; 71045; 74177; 78452; 80053; 82550; 82552; 83690; 83735; 84484; 85025; 85610; 93005; 93017; 99285; A9502; G0378; Q9967